=== PATIENT | female | born 1970 | race Caucasian/White ===

== ENCOUNTER 2016-09-20 06:24 | Observation (INO) | payer BC, MEDICARE ==
[2016-09-18 12:33] VITALS: Ht 182.9 cm; Wt 109.5 kg
[2016-09-18 13:18] VITALS: BP_SYST 102; TEMP 98.2
[~2016-09-20] VITALS: Ht 182.9 cm; Wt 109.5 kg
[2016-09-20] VITALS (16 sets, daily range): BP systolic 93–146; RESP 11–18; TEMP 97–98.7
[2016-09-20] MEDS ORDERED: CEFAZOLIN 2,000 MG in SODIUM CHLORIDE 0.9% 100 ML IV ONE (06:40)
[2016-09-20] MEDS ORDERED: ONDANSETRON 4 MG VIAL IV ONE (07:00)
[2016-09-20] MEDS ORDERED: MIDAZOLAM 2 MG/2 ML INJ IV ONE (07:00)
[2016-09-20] MEDS ORDERED: LIDOCAINE 1% BUFFERED 1 ML SYR INTRADERM PRN (07:00)
[2016-09-20] MEDS ORDERED: LACT RINGERS 1,000 ML IV SCH (07:00)
[2016-09-20] MEDS ORDERED: GLYCOPYRROLATE 0.2 MG/ML VIAL IV ONE (07:00)
[2016-09-20] MEDS ORDERED: DEXAMETHASONE 4 MG/ML VIAL IV ONE (07:00)
[2016-09-20] MEDS ORDERED: MORPHINE 2 MG/ML SYR IV PRN (09:05)
[2016-09-20] MEDS ORDERED: MEPERIDINE 25 MG/ML IV PRN (09:05)
[2016-09-20] MEDS ORDERED: OXYCODONE 5 MG TAB PO PRN (09:05)
[2016-09-20] MEDS ORDERED: MORPHINE 4 MG/ML SYR IV PRN (09:05)
[2016-09-20] MEDS ORDERED: DILAUDID 1 MG/ML AMP IV PRN (09:05)
[2016-09-20] MEDS ORDERED: ONDANSETRON 4 MG VIAL IV PRN (09:05)
[2016-09-20] MEDS ORDERED: GLUCAGON 1 MG VIAL IM PRN (09:10)
[2016-09-20] MEDS ORDERED: DEXTROSE 50% SYRINGE 50 ML IV PRN (09:10)
[2016-09-20] MEDS ORDERED: amLODIPine 2.5 MG TAB PO PRN (09:10)
[2016-09-20] MEDS ORDERED: SALINE FLUSH 10 ML FLUSH PRN (09:10)
[2016-09-20] MEDS ORDERED: ACETAMINOPHEN 1,000 MG/100 ML IV ONE (10:27)
[2016-09-20] MEDS ORDERED: LIDOCAINE 2% SYR 5 ML IV ONE (10:27)
[2016-09-20] MEDS ORDERED: SUGAMMADEX 200 MG/2 ML VIAL IV ONE (10:27)
[2016-09-20] MEDS ORDERED: BUPIVACA/EPI 0.25% PF 30ML NERVEBLOCK ONE (10:27)
[2016-09-20] MEDS ORDERED: SUCCINYLCHOLINE 20 MG/ML VL IV ONE (10:27)
[2016-09-20] MEDS ORDERED: PROPOFOL 20 ML PER ML IV ONE (10:27)
[2016-09-20] MEDS ORDERED: ROCURONIUM 50 MG VIAL IV ONE (10:27)
[2016-09-20] MEDS ORDERED: SODIUM CHLORIDE 0.9% 1,000 ML IV SCH (11:05)
[2016-09-20] MEDS: MORPHINE 2 MG/ML SYR IV PRN ×6 (11:09→23:16)
[2016-09-20] MEDS: MAG OXIDE 400 MG TAB PO SCH ×2 (11:10→21:06)
[2016-09-20] MEDS: GABAPENTIN 300 MG CAP PO SCH ×2 (11:16→21:06)
[2016-09-20] MEDS: TACROLIMUS 1 MG CAP PO SCH ×2 (11:17→21:07)
[2016-09-20] MEDS: ALLOPURINOL 100 MG TAB PO SCH (11:17)
[2016-09-20] MEDS: METOPROLOL XL 25 MG TAB PO SCH (11:17)
[2016-09-20] MEDS: SUCRALFATE 1 GM TAB PO SCH ×3 (11:17→21:07)
[2016-09-20] MEDS: LISINOPRIL 10 MG TAB PO SCH (11:17)
[2016-09-20] MEDS: CALCIUM ACETATE 667MG CAP PO SCH ×2 (12:44→17:45)
[2016-09-20] MEDS: OXYCODONE 5 MG TAB PO PRN ×2 (15:19→19:39)
[2016-09-20] MEDS: ONDANSETRON 4 MG VIAL IV PRN (18:12)
[2016-09-20] MEDS ORDERED: ROSUVASTATIN 20 MG TAB PO SCH (21:00)
[2016-09-20] MEDS ORDERED: EZETIMIBE 10 MG TAB PO SCH (21:00)
[2016-09-20] MEDS: SALINE FLUSH 10 ML FLUSH SCH (21:06)
[2016-09-20] MEDS ORDERED: MIRTAZAPINE 15 MG TAB PO PRN (21:20)
[2016-09-20] MEDS ORDERED: MISSING DOSE XX ONE (21:35)
[2016-09-21] MEDS: MORPHINE 2 MG/ML SYR IV PRN (03:06)
[2016-09-21 04:04] VITALS: BP_SYST 104; RESP 16; TEMP 97.4
[2016-09-21] MEDS ORDERED: SODIUM CHLORIDE 0.9% FLUSH BAG 500 ML IV SCH (06:00)
[2016-09-21 07:28] VITALS: BP_SYST 103; RESP 18; TEMP 98.1
[2016-09-21] MEDS: OXYCODONE 5 MG TAB PO PRN ×2 (07:39→13:14)
[2016-09-21] MEDS: SALINE FLUSH 10 ML FLUSH SCH (08:00)
[2016-09-21] MEDS: CALCIUM ACETATE 667MG CAP PO SCH ×2 (08:00→12:40)
[2016-09-21 08:44] VITALS: BP_SYST 103; RESP 18; TEMP 98.1
[2016-09-21] MEDS: SUCRALFATE 1 GM TAB PO SCH (08:45)
[2016-09-21] MEDS: LISINOPRIL 10 MG TAB PO SCH (08:46)
[2016-09-21] MEDS: ALLOPURINOL 100 MG TAB PO SCH (08:46)
[2016-09-21] MEDS: METOPROLOL XL 25 MG TAB PO SCH (08:46)
[2016-09-21] MEDS ORDERED: FENOFIBRATE 145 MG TAB PO SCH (09:00)
[2016-09-21 09:26] VITALS: BP_SYST 101; RESP 16; TEMP 97.5
[2016-09-21 09:30] VITALS: BP_SYST 103; RESP 18; TEMP 98.1
[2016-09-21] MEDS: ONDANSETRON 4 MG VIAL IV PRN (09:33)
[2016-09-21] MEDS: GABAPENTIN 300 MG CAP PO SCH (12:41)
[2016-09-21] MEDS: TACROLIMUS 1 MG CAP PO SCH (12:41)
[2016-09-21] MEDS: MAG OXIDE 400 MG TAB PO SCH (12:41)
[2016-09-21 12:42] VITALS: BP_SYST 109; RESP 18; TEMP 97.7
[2016-09-21] MEDS ORDERED: OXYCODONE 5 MG TAB PO PRN (13:30)
== END 2016-09-21 08:19 | disposition home or self-care (01) ==
LOC: ENRESERVTM → ENRESERVDT → OSEC 06:24 → SDS 09:06 → 5THW 10:22
PROVIDERS: ADMIT Surgery; ATTEND Surgery
DX: I12.0 Hypertensive chronic kidney disease with stage 5 chronic kidney disease or end stage renal disease (principal); Z94.1 Heart transplant status; Z95.0 Presence of cardiac pacemaker; N18.6 End stage renal disease; Z99.2 Dependence on renal dialysis; K21.9 Gastro-esophageal reflux disease without esophagitis; E78.5 Hyperlipidemia, unspecified; E11.40 Type 2 diabetes mellitus with diabetic neuropathy, unspecified; Z79.84 Long term (current) use of oral hypoglycemic drugs; M31.9 Necrotizing vasculopathy, unspecified
CPT/HCPCS: 36415; 80048; 82947; 85025; 93005; 94799